=== PATIENT | male | born 1955 | race Caucasian/White ===

== ENCOUNTER → 2023-12-13 | Outpatient (CLI) | payer MEDICARE | END | disposition home or self-care (01) | LOC: RESCLI 08:27 | PROVIDERS: ATTEND Student in an Organized Health Care Education/Training Program | DX: M10.9 Gout, unspecified (principal); I48.91 Unspecified atrial fibrillation; E78.5 Hyperlipidemia, unspecified; R60.0 Localized edema; R42 Dizziness and giddiness; F10.90 Alcohol use, unspecified, uncomplicated; Z79.01 Long term (current) use of anticoagulants; Z79.02 Long term (current) use of antithrombotics/antiplatelets; Z79.899 Other long term (current) drug therapy ==